=== PATIENT | male | born 1975 | race Caucasian/White ===

== ENCOUNTER 2021-01-29 10:41 | Emergency (ER) | payer OTHER ==
[~2021-01-29] VITALS: Ht 182.9 cm; Wt 146.2 kg
[2021-01-29] MEDS ORDERED: PROZAC40 MG PO (11:02)
[2021-01-29] MEDS ORDERED: VISTARIL25 MG PO (11:02)
== END 2021-01-29 12:03 | disposition home or self-care (01) ==
LOC: ED 10:41
DX: S52.602A Unspecified fracture of lower end of left ulna, initial encounter for closed fracture (principal); Z87.891 Personal history of nicotine dependence; Z88.0 Allergy status to penicillin; Z88.5 Allergy status to narcotic agent; Z79.899 Other long term (current) drug therapy; W22.8XXA Striking against or struck by other objects, initial encounter
CPT/HCPCS: 29125; 99283-25

== ENCOUNTER 2021-08-02 12:45 | Emergency (ER) | payer OTHER ==
[~2021-08-02] VITALS: Ht 177.8 cm; Wt 138.3 kg
[~2021-08-02 12:45] MED LIST: CYMBALTA60 MG PO; FLOMAX0.4 MG PO; PROZAC40 MG PO; TYLOPHEN500 MG PO; VISTARIL25 MG PO
== END 2021-08-02 15:21 | disposition home or self-care (01) ==
LOC: ED 12:45
DX: D50.9 Iron deficiency anemia, unspecified (principal); Z87.891 Personal history of nicotine dependence; Z88.0 Allergy status to penicillin; Z88.5 Allergy status to narcotic agent; Z79.899 Other long term (current) drug therapy
CPT/HCPCS: 80048; 83020; 85025; 85610; 86850; 86900; 86901; 86922; 99283